=== PATIENT | male | born 1980 | race African-American/Black ===

== ENCOUNTER 2018-05-30 18:14 | Emergency (ER) | payer OTHER, MEDICAID ==
[2018-05-30 18:24] VITALS: BP 142/87
[2018-05-30] MEDS ORDERED: IBUPROFEN 800 MG TABLET PO ONE (19:01)
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
== END 2018-05-30 19:18 | disposition home or self-care (01) ==
LOC: ER 18:14
DX: R51 Headache (principal); M54.5 Low back pain; V49.40XA Driver injured in collision with unspecified motor vehicles in traffic accident, initial encounter
CPT/HCPCS: 99283

== ENCOUNTER 2018-10-24 09:15 | Emergency (ER) | payer MEDICAID, OTHER ==
[2018-10-24] MEDS ORDERED: TETRACAINE HCL 0.5% OPH SOLN 4 ML OS ONE (10:04)
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
[2018-10-24 12:24] VITALS: BP 141/81
[2018-10-24] MEDS ORDERED: ERYTHROMYCIN 0.5% OPH OINT 1 GM UNIT DOSE OS ONE (12:25)
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
== END 2018-10-24 12:25 | disposition home or self-care (01) ==
LOC: ER 09:15
DX: S05.02XA Injury of conjunctiva and corneal abrasion without foreign body, left eye, initial encounter (principal); X58.XXXA Exposure to other specified factors, initial encounter; F17.200 Nicotine dependence, unspecified, uncomplicated; Z87.820 Personal history of traumatic brain injury
CPT/HCPCS: 99283; J3490

== ENCOUNTER 2019-01-08 14:26 | Emergency (ER) | payer OTHER, MEDICAID ==
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
[2019-01-08 15:48] LABS: ABSOLUTE BASOPHILS # (AUTO) 0.1 10^3/uL (0.0-0.2); ABSOLUTE EOSINOPHILS # (AUTO) 0.2 10^3/uL (0.0-0.6); ABSOLUTE LYMPHOCYTES (AUTO) 2.9 10^3/uL (0.5-4.7); ABSOLUTE MONOCYTES (AUTO) 0.5 10^3/uL (0.1-1.4); ABSOLUTE NEUT (AUTO) 4.7 10^3/uL (1.7-8.2); BASOPHILS % (AUTO) 0.8 % (0-2); EOSINOPHILS % (AUTO) 2.5 % (0-6); HEMATOCRIT 39.1 % (37.9-51.0); HEMOGLOBIN 13.5 g/dL (13.5-17.0); LYMPHOCYTES % (AUTO) 34.4 % (13-45); MEAN CORPUSCULAR HEMOGLOBIN 29.1 pg (27.0-33.4); MEAN CORPUSCULAR HGB CONC 34.4 g/dL (32.0-36.0); MEAN CORPUSCULAR VOLUME 85 fl (80-97); MONOCYTES % (AUTO) 5.7 % (3-13); PLATELET COUNT 121 10^3/uL (150-450); RED BLOOD COUNT 4.62 10^6/uL (4.35-5.55); RED CELL DISTRIBUTION WIDTH 15.1 % (11.5-14.0); SEGMENTED NEUTROPHILS % (AUTO) 56.6 % (42-78); TOTAL CELLS COUNTED % (AUTO) 100 %; WHITE BLOOD COUNT 8.3 10^3/uL (4.0-10.5)
[2019-01-08 16:14] LABS: ALANINE AMINOTRANSFERASE 15 U/L (21-72); ALBUMIN 4.1 g/dL (3.5-5.0); ALKALINE PHOSPHATASE 74 U/L (38-126); ANION GAP 6 (5-19); ASPARTATE AMINO TRANSFERASE 23 U/L (17-59); BILIRUBIN,DIRECT 0.2 mg/dL (0.0-0.4); BILIRUBIN,TOTAL 0.2 mg/dL (0.2-1.3); BLOOD UREA NITROGEN 11 mg/dL (7-20); CALCIUM 9.1 mg/dL (8.4-10.2); CARBON DIOXIDE 30 mmol/L (22-30); CHLORIDE 105 mmol/L (98-107); GLUCOSE 78 mg/dL (75-110); LIPASE 321.8 U/L (23-300); POTASSIUM 3.8 mmol/L (3.6-5.0); SODIUM 140.9 mmol/L (137-145); TOTAL PROTEIN 6.8 g/dL (6.3-8.2)
[2019-01-08 16:20] LABS: C-REACTIVE PROTEIN < 5.0 mg/L (<10.0)
--- NOTE | 2019-01-08 17:00 | RADIOLOGY REPORT (SQ) ---
EXAM DESCRIPTION: U/S ABDOMEN LIMITED W/O DOP COMPLETED DATE/TIME: 01/08/2019 4:40 pm REASON FOR STUDY: abd pain, unsure umbilical hernia COMPARISON: None. TECHNIQUE: Dynamic and static grayscale images acquired of the anterior abdominal wall and recorded on PACS. Additional selected color Doppler and spectral images recorded. LIMITATIONS: None. FINDINGS: Patient has pain along the anterior abdominal wall supraumbilical region. Ultrasound of t he midline anterior abdominal wall supraumbilical region in the area of pain demonstrates no discrete anterior abdominal wall hernia. Dynamic scanning with Valsalva was performed. IMPRESSION: No ultrasound evidence of midline ventral hernia TECHNICAL DOCUMENTATION: JOB ID: [id number]- All Rights Reserved Reading location - IP/workstation name: [email or web address]
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
[2019-01-08 21:26] VITALS: BP 122/72
== END 2019-01-08 21:25 | disposition home or self-care (01) ==
LOC: ER 14:26
DX: K42.9 Umbilical hernia without obstruction or gangrene (principal)
CPT/HCPCS: 36415; 76705; 80053; 83690; 85025; 86140; 99284

== ENCOUNTER 2019-01-28 14:01 | Day surgery (SDC) | payer MEDICAID, OTHER ==
[~2019-01-28 14:01] MED LIST: ACETAMINOPHEN 325 MG TABLET PO PRN; CEFAZOLIN SODIUM 2 GM in DEXTROSE 5%-WATER 100 ML IV PRN; GLYCOPYRROLATE 1 MG/5 ML VIAL ONE; IBUPROFEN 800 MG in NORMAL SALINE 250 ML IV PRN; NEOSTIGMINE METHYLSULFATE 10 MG/10 ML VIAL ONE; PREGABALIN 50 MG CAPSULE PO PRN; ROCURONIUM BROMIDE INJ 50 MG/5 ML VIAL IV ONE; SUCCINYLCHOLINE CHLORIDE INJ 200 MG/10 ML VIAL ONE
[2019-01-28] MEDS ORDERED: PREGABALIN 50 MG CAPSULE ONE (14:57)
[2019-01-28] MEDS ORDERED: ACETAMINOPHEN 325 MG TABLET ONE (14:57)
[2019-01-28] MEDS ORDERED: KETOROLAC TROMETHAMINE 60 MG/2 ML SDV ONE (18:29)
[2019-01-28] MEDS ORDERED: FENTANYL CITRATE INJ/PF 100 MCG/2 ML AMPUL ONE (18:29)
[2019-01-28] MEDS ORDERED: DEXAMETHASONE SOD PHOSPHATE INJ 4 MG/1 ML VIAL ONE (18:30)
[2019-01-28] MEDS ORDERED: PROPOFOL INJ 200 MG/20 ML VIAL IV ONE (18:30)
[2019-01-28] MEDS ORDERED: ONDANSETRON HCL INJ/PF 4 MG/2 ML SDV ONE (18:30)
[2019-01-28] MEDS ORDERED: MIDAZOLAM 2 MG/2 ML INJ ONE (18:30)
[2019-01-28] MEDS ORDERED: BUPIVACAINE HCL 0.25 % INJ/PF (2.5 MG/1 ML) 30 ML VIAL ONE (18:58)
[2019-01-28] MEDS ORDERED: MORPHINE SULFATE 10 MG/ML INJ ONE (19:27)
[2019-01-28] MEDS ORDERED: MEPERIDINE HCL/PF INJ 25 MG/1 ML DISP.SYRIN IV PRN (19:33)
[2019-01-28] MEDS ORDERED: DIPHENHYDRAMINE HCL 50 MG/ML VIAL IV PRN (19:33)
[2019-01-28] MEDS ORDERED: PROMETHAZINE HCL INJ 25 MG/1 ML VIAL IV PRN ×2 (19:33)
[2019-01-28] MEDS ORDERED: MORPHINE SULFATE 10 MG/ML INJ IV PRN (19:33)
[2019-01-28] MEDS ORDERED: FENTANYL CITRATE INJ/PF 100 MCG/2 ML AMPUL IV PRN ×3 (19:33)
[2019-01-28] MEDS ORDERED: OXYCODONE-ACETAMINOPHEN 5-325 MG TABLET PO PRN ×2 (19:33)
[2019-01-28] MEDS ORDERED: ONDANSETRON HCL INJ/PF 4 MG/2 ML SDV IV PRN (19:33)
[2019-01-28] MEDS ORDERED: HYDROCODONE/ACETAMINOPHEN 10-325 MG TABLET PO PRN (22:59)
[2019-01-29 00:17] VITALS: BP 132/87
--- NOTE | 2019-02-03 21:00 | Operative Report ---
Nonrecallable Operative Report DATE OF SURGERY: 01/28/19 PREOPERATIVE DIAGNOSIS: Symptomatic umbilical hernia POSTOPERATIVE DIAGNOSIS: Same as above OPERATION: Open umbilical hernia repair with mesh. SURGEON: GENNY SUTHERLAND ANESTHESIA: GA TISSUE REMOVED OR ALTERED: None COMPLICATIONS: None apparent ESTIMATED BLOOD LOSS: Minimal PROCEDURE: Drains/implants: [address] hernia mesh. Procedure in detail: After informed consent was obtained, the patient was brought to the operating room in supine position. The area of the abdomen was prepped and draped in a normal sterile fashion. A curvilinear infraumbilical incision was created with a 15 blade scalpel. Dissection was carried through the subcutaneous tissue using sharp and blunt dissection. The cicatrix was elevated away from the fascia, and the base of the cicatrix was divided with a 15 blade scalpel. This exposed the hernia defect. The preperitoneal fat was cleared away from the hernia defect. An [address] hernia mesh was chosen to adequately cover the defect. The hernia mesh was sutured to the anterior abdominal fascia using 0 Prolene mattress sutures in 4 quadrants. The overlying fascia was then closed using [id number] 0 Prolene sutures. The cicatrix was reattached to the fascia using 3-0 Vicryl suture. Subcutaneous tissue was closed using 3-0 Vicryl suture. The overlying skin was closed using 4-0 Vicryl Rapide suture in subcuticular fashion. Dressing was placed, the procedure was concluded. All sponge, instrument, needle counts were correct x2. Condition: Stable.
--- NOTE | 2019-02-03 21:02 | Discharge Summary ---
Discharge Summary (SDC) - Discharge Final Diagnosis: symptomatic umbilical hernia Date of Surgery: 01/28/19 Discharge Date: 01/28/19 Condition: Fair Forms: Discharge POC-Adult Treatment or Instructions: Diet: As tolerated Activity: No lifting more than 10 pounds for the next six weeks. Referrals: GENNY SUTHERLAND MD [ACTIVE STAFF] - (We will make a follow-up appointment for you and contact you with the date and time. Thank you.) Discharge Diet: As Tolerated Respiratory Treatments at Home: Deep Breathing/Coughing, Incentive Spirometer Discharge Activity: No Lifting Over 10 Pounds Home Care Assistance: None Needed Report the Following to Your Physician Immediately: Shortness of Breath, Nausea, Vomiting, Fever over 101 Degrees, Unusual Bleeding, Redness
== END 2019-01-28 23:00 | disposition home or self-care (01) ==
LOC: OROUT 14:01 → 5 20:51 → OROUT 23:00
PROVIDERS: ATTEND Surgery
DX: K42.9 Umbilical hernia without obstruction or gangrene (principal); F12.90 Cannabis use, unspecified, uncomplicated
CPT/HCPCS: 00750; 49585; C1781; J3490 ×4; J2250; J0690; J1100; J1885; J3010; J2710; J0330; J2405; S0020; J7060; J7050; J2704; J1741; 750; J2270

== ENCOUNTER 2019-02-03 14:12 | Observation (INO) | payer MEDICAID ==
[~2019-02-03 14:12] MED LIST changes: -ACETAMINOPHEN 325 MG TABLET PO PRN; -CEFAZOLIN SODIUM 2 GM in DEXTROSE 5%-WATER 100 ML IV PRN; -IBUPROFEN 800 MG in NORMAL SALINE 250 ML IV PRN; +LIDOCAINE 2% INJ-PF (20 MG/ML) 2 ML AMPUL ONE; +ONDANSETRON HCL INJ/PF 4 MG/2 ML SDV ONE; -PREGABALIN 50 MG CAPSULE PO PRN
[2019-02-03] MEDS ORDERED: FENTANYL CITRATE INJ/PF 100 MCG/2 ML AMPUL IV ONE (16:31)
[2019-02-03] MEDS ORDERED: ONDANSETRON HCL INJ/PF 4 MG/2 ML SDV IV ONE (16:31)
[2019-02-03] MEDS ORDERED: NORMAL SALINE 1000 ML 1,000 ML IV ONE (16:32)
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
[2019-02-03 16:52] LABS: ABSOLUTE BASOPHILS # (AUTO) 0.1 10^3/uL (0.0-0.2); ABSOLUTE EOSINOPHILS # (AUTO) 0.1 10^3/uL (0.0-0.6); ABSOLUTE LYMPHOCYTES (AUTO) 1.9 10^3/uL (0.5-4.7); ABSOLUTE MONOCYTES (AUTO) 0.7 10^3/uL (0.1-1.4); ABSOLUTE NEUT (AUTO) 14.3 10^3/uL (1.7-8.2); BASOPHILS % (AUTO) 0.5 % (0-2); EOSINOPHILS % (AUTO) 0.7 % (0-6); HEMATOCRIT 44.7 % (37.9-51.0); HEMOGLOBIN 14.9 g/dL (13.5-17.0); MEAN CORPUSCULAR HEMOGLOBIN 28.8 pg (27.0-33.4); MEAN CORPUSCULAR HGB CONC 33.4 g/dL (32.0-36.0); MEAN CORPUSCULAR VOLUME 86 fl (80-97); MONOCYTES % (AUTO) 4.2 % (3-13); PLATELET COUNT 162 10^3/uL (150-450); RED BLOOD COUNT 5.18 10^6/uL (4.35-5.55); SEGMENTED NEUTROPHILS % (AUTO) 83.6 % (42-78); TOTAL CELLS COUNTED % (AUTO) 100 %; WHITE BLOOD COUNT 17.1 10^3/uL (4.0-10.5)
[2019-02-03 17:13] LABS: ALANINE AMINOTRANSFERASE < 6 U/L (21-72); ALBUMIN 4.3 g/dL (3.5-5.0); ALKALINE PHOSPHATASE 86 U/L (38-126); ANION GAP 7 (5-19); ASPARTATE AMINO TRANSFERASE 45 U/L (17-59); BILIRUBIN,DIRECT 0.2 mg/dL (0.0-0.4); BILIRUBIN,TOTAL 0.5 mg/dL (0.2-1.3); BLOOD UREA NITROGEN 14 mg/dL (7-20); CALCIUM 9.5 mg/dL (8.4-10.2); CARBON DIOXIDE 27 mmol/L (22-30); CHLORIDE 106 mmol/L (98-107); GLUCOSE 91 mg/dL (75-110); POTASSIUM 4.2 mmol/L (3.6-5.0); TOTAL PROTEIN 7.7 g/dL (6.3-8.2)
--- NOTE | 2019-02-03 18:12 | RADIOLOGY REPORT (SQ) ---
EXAM DESCRIPTION: CT ABD/PELVIS WITH IV ONLY COMPLETED DATE/TIME: 02/03/2019 5:55 pm REASON FOR STUDY: abdominal pain COMPARISON: None. TECHNIQUE: CT scan of the abdomen and pelvis performed using helical scanning technique with dynamic intravenous contrast injection. No oral contrast. Images reviewed with lung, soft tissue, and bone windows. Reconstructed coronal and sagittal MPR images reviewed. Delayed images for evaluation of the urinary system also acquired. All images stored on PACS. All CT scanners at this facility use dose modulation, iterative reconstruction, and/or weight based d osing when appropriate to reduce radiation dose to as low as reasonably achievable (ALARA). [facility]: Dose Right [facility]: CareDose [facility]: Dose Right [facility]: Teradose 4D [facility]: [email or web address] CONTRAST TYPE AND DOSE: contrast/concentration: Isovue 350.00 mg/ml; Total Contrast Delivered: 100.0 ml; Total Saline Delivered: 72.0 ml RENAL FUNCTION: None required. The patient is less than 50 years old. RADIATION DOSE: CT Rad equipment meets quality standard of care and radiation dose reduction techniq ues were employed. CTDIvol: 9.3 - 13.1 mGy. DLP: 1239 mGy-cm.. LIMITATIONS: None. FINDINGS: LOWER CHEST: No significant findings. No nodules or infiltrates. LIVER: Normal size. No masses. No dilated ducts. SPLEEN: Normal size. No focal lesions. PANCREAS: No masses. No significant calcifications. No adjacent inflammation or peripancreatic fluid collections. Pancreatic duct not dilated. GALLBLADDER: No identified stones by CT criteria. No inflammatory changes to suggest cholecystitis. ADRENAL GLANDS: No significant masses or asymmetry. RIGHT KIDNEY AND URETER: No solid masses. No significant calcification. No hydronephrosis or hydroure ter. LEFT KIDNEY AND URETER: No solid masses. No significant calcification. No hydronephrosis or hydrouret er. AORTA AND VESSELS: No aneurysm. No dissection. Renal arteries, SMA, celiac without stenosis. RETROPERITONEUM: No retroperitoneal adenopathy, hemorrhage or masses. BOWEL AND PERITONEAL CAVITY: Fluid-filled loops of small bowel in the epigastrium. At the level of t he umbilicus, there is a bilobed fluid collection, partially intraabdominal and partially extending a bdominal wall into the subcutaneous tissues. Maximal AP dimension of this collection is almost 7 cm. The lesion appears to be associated with mass effect on adjacent small bowel loops, probably contri buting to partial obstruction at this level. Some of the adjacent loops are mildly thick walled as w ell. No free air. Mild ascites. APPENDIX: Normal. PELVIS: Small amount of free fluid in the pelvis. Otherwise normal. ABDOMINAL WALL: No masses. No hernias. BONES: No significant or acute findings. OTHER: No other significant finding. IMPRESSION: 1. Umbilical hernia containing fluid status post recent hernia repair. Fluid measures over 6 cm in m aximal dimension. Intra-abdominal portion appears to exert mass effect on the adjacent small bowel l oops causing relative partial obstruction. No clear bowel extending out into the hernia. Mild ascit es is also noted. TECHNICAL DOCUMENTATION: JOB ID: [id number] Quality ID # [id number]: Final reports with documentation of one or more dose reduction techniques (e.g., Au tomated exposure control, adjustment of the mA and/or kV according to patient size, use of iterative reconstruction technique) 2010 [employer]- All Rights Reserved Reading location - IP/workstation name: [email or web address]
[2019-02-03] MEDS ORDERED: HYDROMORPHONE HCL INJ/PF 2 MG/ML AMPULE IV ONE (18:56)
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
[2019-02-03] MEDS ORDERED: FENTANYL CITRATE INJ/PF 250 MCG/5 ML AMPULE ONE (20:26)
[2019-02-03] MEDS ORDERED: LIDOCAINE 2% INJ-PF (100 MG/5 ML) SYRINGE ONE (20:26)
[2019-02-03] MEDS ORDERED: MIDAZOLAM 2 MG/2 ML INJ ONE ×2 (20:27→23:32)
[2019-02-03] MEDS ORDERED: FENTANYL CITRATE INJ/PF 100 MCG/2 ML AMPUL ONE (20:27)
[2019-02-03] MEDS ORDERED: HYDROMORPHONE HCL INJ/PF 2 MG/ML AMPULE ONE (20:27)
[2019-02-03] MEDS ORDERED: PROPOFOL INJ 200 MG/20 ML VIAL IV ONE (20:28)
--- NOTE | 2019-02-03 20:28 | PDOC H&P ---
History of Present Illness Admission Date/PCP: 02/03/19 19:46 Patient complains of: Abdominal pain, nausea, vomiting after umbilical hernia repair. History of Present Illness: SHELIA CORDOBA JR is a 38 year old male approximately 6 days status post umbilical hernia repair. The patient had a coughing episode last night at home and felt a pop in his abdomen. His abdomen then became swollen, tender, and he developed distention, nausea, and vomiting. The patient denies fevers or chills. His pain is situated around his umbilicus. It radiates laterally on adriano th sides. Nothing makes his pain better. Movement, breathing, and palpation make it worse. Patient denies chest pain, shortness of breath, fevers, chills, dizziness, orthostasis, headache, blurry vision. Patient had a CT scan showing a fluid collection, likely hematoma, between the mesh and the abdominal wall, with nearby small bowel inflamed and evidence of an obstruction. 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 Denies: Seizures Endocrine Medical History: Reports: None Renal/ Medical History: Reports: None Malignancy Medical History: Reports: None GI Medical History: Reports: None Musculoskeltal Medical History: Denies: Arthritis Skin Medical History: Reports: None Psychiatric Medical History: Reports: Depression Traumatic Medical History: Reports: Traumatic Brain Injury Hematology: Denies: Anemia Infectious Medical History: Reports: None Past Surgical History Past Surgical History: Reports: Orthopedic Surgery - knee, Other - recent open umbilical hernia repair Social History Lives with: Spouse/Significant other Smoking Status: Current Some Day Smoker Family History Family History: Reviewed & Not Pertinent Parental Family History Reviewed: Yes Children Family History Reviewed: Yes Sibling(s) Family History Reviewed.: Yes Medication/Allergy Home Medications: No Home Medications 1 03/11/13 Allergies/Adverse Reactions: No Known Allergies Allergy (Verified 02/03/19 14:19) Review of Systems Constitutional: PRESENT: anorexia. ABSENT: chills, fatigue, fever(s), weakness Eyes: ABSENT: visual disturbances Ears: ABSENT: hearing changes Nose, Mouth, and Throat: ABSENT: sore throat Cardiovascular: ABSENT: chest pain Respiratory: PRESENT: cough Gastrointestinal: PRESENT: abdominal pain, bloating, nausea, vomiting. ABSENT: hematemesis, hematochezia, melena Genitourinary: ABSENT: dysuria Musculoskeletal: ABSENT: back pain Integumentary: ABSENT: pruritus, rash Neurological: ABSENT: confusion, convulsions, dizziness Psychiatric: ABSENT: anxiety, depression Endocrine: ABSENT: cold intolerance, heat intolerance Hematologic/Lymphatic: ABSENT: easy bleeding, easy bruising Physical Exam Vital Signs: Temp Pulse Resp BP Pulse Ox 97.5 F 73 16 144/82 H 94 02/03/19 14:32 02/03/19 14:32 02/03/19 19:00 02/03/19 19:01 02/03/19 19:01 Intake & Output 02/02/19 02/03/19 02/04/19 06:59 06:59 06:59 Intake Total 1000 Balance 1000 Weight 101 kg General appearance: PRESENT: mild distress Head exam: PRESENT: atraumatic, normocephalic Eye exam: PRESENT: EOMI, PERRLA. ABSENT: scleral icterus Mouth exam: PRESENT: moist, neck supple Teeth exam: ABSENT: poor dentation Neck exam: ABSENT: meningismus, tenderness, thyromegaly, tracheal deviation Respiratory exam: PRESENT: unlabored. ABSENT: chest wall tenderness, tachypnea, wheezes Cardiovascular exam: PRESENT: RRR Pulses: PRESENT: normal radial pulses Vascular exam: PRESENT: normal capillary refill, pallor GI/Abdominal exam: PRESENT: distended, firm, tenderness Rectal exam: PRESENT: deferred Extremities exam: ABSENT: clubbing Musculoskeletal exam: ABSENT: deformity Neurological exam: PRESENT: alert, awake, oriented to person, oriented to place, oriented to time, oriented to situation, CN II-XII grossly intact Psychiatric exam: ABSENT: agitated, anxious, depressed Focused psych exam: ABSENT: delusional Skin exam: ABSENT: cyanosis, erythema, jaundice Results Laboratory Results: 02/03/19 16:40 02/03/19 16:40 02/03/19 02/03/19 16:40 16:40 WBC 17.1 H RBC 5.18 Hgb 14.9 Hct 44.7 MCV 86 MCH 28.8 MCHC 33.4 RDW 15.0 H Plt Count 162 Seg Neutrophils % 83.6 H Lymphocytes % 11.0 L Monocytes % 4.2 Eosinophils % 0.7 Basophils % 0.5 Absolute Neutrophils 14.3 H Absolute Lymphocytes 1.9 Absolute Monocytes 0.7 Absolute Eosinophils 0.1 Absolute Basophils 0.1 Sodium 140.2 Potassium 4.2 Chloride 106 Carbon Dioxide 27 Anion Gap 7 BUN 14 Creatinine 0.99 Est GFR ( Amer) > 60 Est GFR (Non-Af Amer) > 60 Glucose 91 Calcium 9.5 Total Bilirubin 0.5 AST 45 ALT < 6 L Alkaline Phosphatase 86 Total Protein 7.7 Albumin 4.3 Impressions: Abdomen/Pelvis CT 02/03/19 16:30 IMPRESSION: 1. Umbilical hernia containing fluid status post recent hernia repair. Fluid measures over 6 cm in maximal dimension. Intra-abdominal portion appears to exert mass effect on the adjacent small bowel loops causing relative partial obstruction. No clear bowel extending out into the hernia. Mild ascites is also noted. Assessment & Plan - Diagnosis (1) Postoperative intestinal obstruction Qualifiers: Intestinal obstruction extent: unspecified extent Qualified Code(s): K91.30 - Postprocedural intestinal obstruction, unspecified as to partial versus complete Is this a current diagnosis for this admission?: Yes - Plan Summary Plan Summary: This is a 38-year-old male 6 days postop from an open umbilical hernia repair. The patient reports coughing at home and feeling a pop in his abdomen. The patient then began having abdominal distention, nausea, vomiting, and diffuse abdominal pain. Patient presented to the emergency department where CT scan was performed. I reviewed the CT scan images and reports. Patient has a fluid collection between the mesh and the abdominal wall, consistent with a hematoma. The patient has a thickened loop of small bowel adjacent to the displaced mesh. There is evidence of obstruction distal to this area. I believe the patient has potentially dislodged his mesh, causing a bowel obstruction after surgery. I have recommended laparoscopic exploration with possible removal of the mesh, possible redo hernia repair. The patient has agreed to this. Risks/benefits discussed, informed consent obtained, and all questions answered.
[2019-02-03] MEDS ORDERED: BUPIVACAINE HCL 0.25 % INJ/PF (2.5 MG/1 ML) 30 ML VIAL ONE (20:36)
[2019-02-03] MEDS ORDERED: CEFAZOLIN INJ 1 GM VIAL ONE (20:51)
[2019-02-03] MEDS ORDERED: MEPERIDINE HCL/PF INJ 25 MG/1 ML DISP.SYRIN IV PRN (21:55)
[2019-02-03] MEDS ORDERED: DIPHENHYDRAMINE HCL 50 MG/ML VIAL IV PRN (21:55)
[2019-02-03] MEDS ORDERED: FENTANYL CITRATE INJ/PF 100 MCG/2 ML AMPUL IV PRN ×3 (21:55)
[2019-02-03] MEDS ORDERED: PROMETHAZINE HCL INJ 25 MG/1 ML VIAL IV PRN ×2 (21:55)
[2019-02-03] MEDS ORDERED: HYDROMORPHONE HCL INJ/PF 2 MG/ML AMPULE IV PRN (21:56)
[2019-02-03] MEDS ORDERED: KETAMINE HCL INJ 500 MG/10 ML VIAL ONE (23:32)
[2019-02-03] MEDS ORDERED: ONDANSETRON HCL INJ/PF 4 MG/2 ML SDV IV PRN (23:46)
[2019-02-03] MEDS ORDERED: DEXTROSE 5%-LACTATED RINGERS 1,000 ML IV PRN (23:46)
--- NOTE | 2019-02-04 00:03 | Operative Report ---
Nonrecallable Operative Report DATE OF SURGERY: 02/03/19 PREOPERATIVE DIAGNOSIS: 1. Small bowel obstruction. 2. Recurrent umbilical hernia POSTOPERATIVE DIAGNOSIS: 1. The same. 2. The same. 3. No evidence of bowel necrosis or perforation. 4. No evidence of ongoing infection. OPERATION: 1. Exploratory laparoscopy. 2. Extensive laparoscopic lysis of adhesions. 3. Removal of old, dislodged ventralex ST hernia mesh. 4. Laparoscopic repair of recurrent umbilical hernia with mesh. SURGEON: GENNY SUTHERLAND ANESTHESIA: GA TISSUE REMOVED OR ALTERED: [address] hernia mesh COMPLICATIONS: None apparent ESTIMATED BLOOD LOSS: Minimal PROCEDURE: Drains/implants: [address] hernia mesh. Procedure in detail: After informed consent was obtained, the patient was brought to the operating room and laid in the supine position. The area of the abdomen was prepped and draped in a normal sterile fashion. An incision was created in the left upper quadrant. The 5 mm trocar and 5 mm camera were inserted into the abdomen under direct laparoscopic visualization, using the Optiview technique. Once the abdominal cavity was accessed, the gas insufflation was attached, and pneumoperitoneum was achieved. Another left lateral 5 mm trocar was placed. Another 5 mm trocar was placed in the supr apubic midline. The left upper quadrant 5 mm trocar was removed and replaced with a 12 mm trocar. Another 5 mm trocar was placed in the right upper quadrant under direct laparoscopic visualization, to facilitate exploration. Upon entry into the abdominal cavity there is a large amount of omentum and small bowel stuck to the anterior abdominal wall at the umbilicus. Very carefully and gently, the small bowel and omentum were peeled away from the anterior abdominal wall. The previously placed hernia mesh was found to be dislodged. Multiple sutures were broken. The mesh was further freed from the anterior abdominal wall using sharp dissection. It was removed through the 12 mm trocar and passed off the field. Attention was then turned to running of the bowel and extensive lysis of adhesions. The small bowel was densely adherent to itself as well as to the omentum. With great care the lysis of adhesions was undertaken. The small bowel to small bowel attachments were lysed using blunt dissection and sharp dissection. The omentum was freed. The small bowel was run from the ligament of Treitz to the ileocecal valve. There were no signs of bowel necrosis or perforation. Once this was completed, the abdomen was copiously irrigated and suctioned until the effluent was clear. Next, attention was turned to repair of the recurrent umbilical hernia defect. 0 Ethibond suture was used to close the fascia in percutaneous fashion with the aid of the Kieran-Rhiannon device. Once this was completed, an [address] hernia mesh was placed into the abdominal cavity. It was apposed to the anterior abdominal wall using the EPS. The mesh was then sutured to the abdominal wall with trans-fascial 0 Prolene sutures in 4 quadrants. Next, the EPS was removed, and tacks were used in several circumferential layers. Once the mesh was found to lie in good place, the 12 mm trocar was removed. The fascia was closed using 0 Vicryl suture in [id number] fashion under direct vision. The 5 mm trochars were removed, and pneumoperitoneum was relieved. The skin was then closed using skin robert. Dressings were placed, and the procedure was concluded. All sponge, instrument, and needle counts were correct x2. Condition: Stable.
[2019-02-04] MEDS: MORPHINE SULFATE 10 MG/ML INJ IV PRN ×2 (01:17→05:21)
[2019-02-04] MEDS: OXYCODONE-ACETAMINOPHEN 5-325 MG TABLET PO PRN ×2 (02:17→19:51)
[2019-02-04] MEDS: KETOROLAC TROMETHAMINE INJ/PF 30 MG/1 ML SDV IV SCH ×3 (05:19→21:06)
[2019-02-04 05:47] LABS: HEMOGLOBIN 13.6 g/dL (13.5-17.0); MEAN CORPUSCULAR HEMOGLOBIN 28.9 pg (27.0-33.4); MEAN CORPUSCULAR HGB CONC 33.9 g/dL (32.0-36.0); MEAN CORPUSCULAR VOLUME 85 fl (80-97); PLATELET COUNT 124 10^3/uL (150-450); RED CELL DISTRIBUTION WIDTH 14.8 % (11.5-14.0); WHITE BLOOD COUNT 21.7 10^3/uL (4.0-10.5)
[2019-02-04 06:14] LABS: ABSOLUTE MONOCYTES # (MANUAL) 0.7 10^3/uL (0.1-1.4); BAND NEUTROPHILS % (MANUAL) 1 % (3-5); BASOPHILS % (MANUAL) 0 % (0-2); EOSINOPHILS % (MANUAL) 0 % (0-6); LYMPHOCYTES % (MANUAL) 9 % (13-45); MONOCYTES % (MANUAL) 3 % (3-13); SEGMENTED NEUTROPHILS % (MAN) 87 % (42-78); TOTAL CELLS COUNTED 100
[2019-02-04 06:15] LABS: PLATELET COMMENT DECREASED; TOXIC GRANULATION SLIGHT; TOXIC VACUOLATION PRESENT
[2019-02-04 06:16] LABS: BURR CELLS SLIGHT; HYPOCHROMASIA SLIGHT
[2019-02-04 06:18] LABS: ANION GAP 10 (5-19); BLOOD UREA NITROGEN 12 mg/dL (7-20); CALCIUM 8.9 mg/dL (8.4-10.2); CARBON DIOXIDE 22 mmol/L (22-30); CHLORIDE 108 mmol/L (98-107); GLUCOSE 88 mg/dL (75-110); POTASSIUM 3.9 mmol/L (3.6-5.0)
--- NOTE | 2019-02-04 07:59 | PDOC PROGRESS REPORT ---
Subjective Progress Note for:: 02/04/19 Reason For Visit: RECURRENT UMBILICAL HERNIA,SMALL BOWEL OBSTRUCTION Physical Exam Vital Signs: Temp Pulse Resp BP Pulse Ox 97.6 F 77 17 145/82 H 93 02/04/19 01:57 02/04/19 01:57 02/04/19 01:37 02/04/19 01:57 02/04/19 04:00 Pulse Oximeter Continuous Start: 02/04/19 00:44 Freq: RTQ4 Status: Active Protocol: Document 02/04/19 04:00 CMI (Rec: 02/04/19 04:33 CMI [id number]) Pulse Oximetry Assessment Oxygen Saturation (92-100) 93 Oxygen Flow Rate (L/min) 2 Oxygen Delivery Method Nasal Cannula Fraction of Inspired Oxygen (FIO2) 28 Equipment Usage Equipment in Use Continuous SpO2 Machine # 13 Intake & Output 02/03/19 02/04/19 02/05/19 06:59 06:59 06:59 Intake Total 3700 Output Total 1210 Balance 2490 Weight 104.2 kg General appearance: PRESENT: no acute distress Head exam: PRESENT: normocephalic Eye exam: PRESENT: EOMI Mouth exam: PRESENT: moist Neck exam: PRESENT: full ROM Respiratory exam: PRESENT: clear to auscultation margarette Cardiovascular exam: PRESENT: RRR Pulses: PRESENT: normal radial pulses, normal femoral pulses GI/Abdominal exam: PRESENT: soft, other - woiund clean dry Rectal exam: PRESENT: deferred Extremities exam: PRESENT: full ROM Musculoskeletal exam: PRESENT: full ROM Neurological exam: PRESENT: alert, awake, oriented to person Psychiatric exam: PRESENT: appropriate affect Skin exam: PRESENT: dry Results Laboratory Results: 02/04/19 05:08 02/04/19 05:08 02/03/19 02/03/19 02/04/19 16:40 16:40 05:08 WBC 17.1 H 21.7 H RBC 5.18 4.70 Hgb 14.9 13.6 Hct 44.7 40.0 MCV 86 85 MCH 28.8 28.9 MCHC 33.4 33.9 RDW 15.0 H 14.8 H Plt Count 162 124 L Seg Neutrophils % 83.6 H Not Reportable Lymphocytes % 11.0 L Not Reportable Monocytes % 4.2 Not Reportable Eosinophils % 0.7 Not Reportable Basophils % 0.5 Not Reportable Absolute Neutrophils 14.3 H Not Reportable Absolute Lymphocytes 1.9 Not Reportable Absolute Monocytes 0.7 Not Reportable Absolute Eosinophils 0.1 Not Reportable Absolute Basophils 0.1 Not Reportable Sodium 140.2 Potassium 4.2 Chloride 106 Carbon Dioxide 27 Anion Gap 7 BUN 14 Creatinine 0.99 Est GFR ( Amer) > 60 Est GFR (Non-Af Amer) > 60 Glucose 91 Calcium 9.5 Total Bilirubin 0.5 AST 45 ALT < 6 L Alkaline Phosphatase 86 Total Protein 7.7 Albumin 4.3 02/04/19 05:08 WBC RBC Hgb Hct MCV MCH MCHC RDW Plt Count Seg Neutrophils % Lymphocytes % Monocytes % Eosinophils % Basophils % Absolute Neutrophils Absolute Lymphocytes Absolute Monocytes Absolute Eosinophils Absolute Basophils Sodium 140.0 Potassium 3.9 Chloride 108 H Carbon Dioxide 22 Anion Gap 10 BUN 12 Creatinine 0.87 Est GFR ( Amer) > 60 Est GFR (Non-Af Amer) > 60 Glucose 88 Calcium 8.9 Total Bilirubin AST ALT Alkaline Phosphatase Total Protein Albumin Impressions: Abdomen/Pelvis CT 02/03/19 16:30 IMPRESSION: 1. Umbilical hernia containing fluid status post recent hernia repair. Fluid measures over 6 cm in maximal dimension. Intra-abdominal portion appears to exert mass effect on the adjacent small bowel loops causing relative partial obstruction. No clear bowel extending out into the hernia. Mild ascites is also noted. Assessment & Plan - Plan Summary Plan Summary: s/p repair of recurrent umbilical hernia last last pm this am feels better abd soft, wound clean dry wbc 21k plan trend wbc clear liquids ambulate.
[2019-02-04] MEDS: FAMOTIDINE INJ/PF 20 MG/2 ML SDV IV SCH ×2 (13:03→21:06)
[2019-02-04] MEDS ORDERED: ONDANSETRON HCL INJ/PF 4 MG/2 ML SDV IV PRN (15:30)
[2019-02-04] MEDS ORDERED: MORPHINE SULFATE 10 MG/ML INJ IV PRN (15:30)
[2019-02-05] MEDS: OXYCODONE-ACETAMINOPHEN 5-325 MG TABLET PO PRN ×2 (01:15→19:09)
[2019-02-05 01:22] LABS: ABSOLUTE BASOPHILS # (AUTO) 0.1 10^3/uL (0.0-0.2); ABSOLUTE EOSINOPHILS # (AUTO) 0.2 10^3/uL (0.0-0.6); ABSOLUTE LYMPHOCYTES (AUTO) 2.3 10^3/uL (0.5-4.7); ABSOLUTE NEUT (AUTO) 8.7 10^3/uL (1.7-8.2); BASOPHILS % (AUTO) 0.4 % (0-2); EOSINOPHILS % (AUTO) 1.4 % (0-6); HEMATOCRIT 36.1 % (37.9-51.0); HEMOGLOBIN 12.1 g/dL (13.5-17.0); LYMPHOCYTES % (AUTO) 18.8 % (13-45); MEAN CORPUSCULAR HEMOGLOBIN 28.4 pg (27.0-33.4); MEAN CORPUSCULAR HGB CONC 33.7 g/dL (32.0-36.0); MEAN CORPUSCULAR VOLUME 84 fl (80-97); MONOCYTES % (AUTO) 8.2 % (3-13); PLATELET COUNT 139 10^3/uL (150-450); RED BLOOD COUNT 4.28 10^6/uL (4.35-5.55); RED CELL DISTRIBUTION WIDTH 14.6 % (11.5-14.0); SEGMENTED NEUTROPHILS % (AUTO) 71.2 % (42-78); TOTAL CELLS COUNTED % (AUTO) 100 %; WHITE BLOOD COUNT 12.2 10^3/uL (4.0-10.5)
[2019-02-05] MEDS: KETOROLAC TROMETHAMINE INJ/PF 30 MG/1 ML SDV IV SCH ×2 (05:20→17:45)
--- NOTE | 2019-02-05 08:06 | PDOC PROGRESS REPORT ---
Subjective Progress Note for:: 02/05/19 Subjective:: feels ok no flatus Reason For Visit: RECURRENT UMBILICAL HERNIA,SMALL BOWEL OBSTRUCTION Physical Exam Vital Signs: Temp Pulse Resp BP Pulse Ox 98.7 F 71 15 130/74 H 99 02/04/19 23:12 02/04/19 23:12 02/04/19 23:12 02/04/19 23:12 02/04/19 23:12 Pulse Oximeter Continuous Start: 02/04/19 00:44 Freq: RTQ4 Status: Complete Protocol: Document 02/04/19 12:50 NSC (Rec: 02/04/19 12:50 NSC [id number]) Pulse Oximetry Assessment Equipment Usage Equipment Discontinued Continuous SpO2 Machine # [id number] Additional RT Notes Other equipment discontinued per 12 hour order Intake & Output 02/04/19 02/05/19 02/06/19 06:59 06:59 06:59 Intake Total 3700 320 Output Total 1210 200 Balance 2490 120 Weight 104.2 kg 103.7 kg General appearance: PRESENT: no acute distress Head exam: PRESENT: normocephalic Eye exam: PRESENT: EOMI Mouth exam: PRESENT: dry mucosa Neck exam: PRESENT: full ROM Respiratory exam: PRESENT: clear to auscultation margarette Cardiovascular exam: PRESENT: RRR Pulses: PRESENT: normal radial pulses, normal femoral pulses Vascular exam: PRESENT: normal capillary refill GI/Abdominal exam: PRESENT: soft Rectal exam: PRESENT: deferred Extremities exam: PRESENT: full ROM Musculoskeletal exam: PRESENT: full ROM Neurological exam: PRESENT: alert, awake, oriented to person, oriented to place Psychiatric exam: PRESENT: appropriate affect Skin exam: PRESENT: dry Results Laboratory Results: 02/05/19 01:11 02/04/19 05:08 02/05/19 01:11 WBC 12.2 H RBC 4.28 L Hgb 12.1 L Hct 36.1 L MCV 84 MCH 28.4 MCHC 33.7 RDW 14.6 H Plt Count 139 L Seg Neutrophils % 71.2 Lymphocytes % 18.8 Monocytes % 8.2 Eosinophils % 1.4 Basophils % 0.4 Absolute Neutrophils 8.7 H Absolute Lymphocytes 2.3 Absolute Monocytes 1.0 Absolute Eosinophils 0.2 Absolute Basophils 0.1 Impressions: Abdomen/Pelvis CT 02/03/19 16:30 IMPRESSION: 1. Umbilical hernia containing fluid status post recent hernia repair. Fluid measures over 6 cm in maximal dimension. Intra-abdominal portion appears to exert mass effect on the adjacent small bowel loops causing relative partial obstruction. No clear bowel extending out into the hernia. Mild ascites is also noted. Assessment & Plan - Plan Summary Plan Summary: doing ok awaiting return of bowel function cont clears
[2019-02-05] MEDS: FAMOTIDINE INJ/PF 20 MG/2 ML SDV IV SCH (17:45)
[2019-02-05] MEDS ORDERED: KETOROLAC TROMETHAMINE INJ/PF 30 MG/1 ML SDV IM PRN (20:44)
[2019-02-05] MEDS ORDERED: BISACODYL 10 MG SUPP.RECT PR ONE (22:00)
[2019-02-05] MEDS: FAMOTIDINE 20 MG TABLET PO SCH (22:31)
[2019-02-06] MEDS: OXYCODONE-ACETAMINOPHEN 5-325 MG TABLET PO PRN (08:50)
[2019-02-06] MEDS ORDERED: BISACODYL 10 MG SUPP.RECT PR ONE (09:30)
[2019-02-06] MEDS: FAMOTIDINE 20 MG TABLET PO SCH (09:49)
--- NOTE | 2019-02-06 12:04 | PDOC DISCHARGE SUMMARY ---
General - Admit/Disc Date/PCP Admission Date/Primary Care Provider: 02/05/19 10:48 Discharge Date: 02/06/19 - Additional Information Resuscitation Status: Full Code Discharge Diet: As Tolerated Discharge Activity: Activity As Tolerated, No Lifting Over 10 Pounds Home Medications: Hydrocodone/Acetaminophen [[place] 5-325 Tablet] 1 each PO Q6HP PRN MDD FILLED 01/28 FOR 3 DAY SUPPLY 02/04/19 Ibuprofen [Motrin 800 mg Tablet] 800 mg PO Q8HP PRN MDD FILLED 01/28 FOR 14 DAY SUPPLY 02/04/19 History of Present Illness Patient complains of: abdominal pain History of Present Illness: SHELIA CORDOBA JR is a 38 year old male admitted with abd pain, incarcerated ventral hernia and sbo Hospital Course Hospital Course: taken to or on day of admission for repair of incarcerated ventral hernia and release of sbo pawan procedure well diet advanced over 48hrs and now pawan soft foods with return of nl bowel function pt ready for dc home today. Physical Exam Vital Signs: Temp Pulse Resp BP Pulse Ox 98.4 F 56 L 16 139/69 H 97 02/06/19 07:13 02/06/19 07:13 02/06/19 07:13 02/06/19 07:13 02/06/19 07:13 Pulse Oximeter Continuous Start: 02/04/19 00:44 Freq: RTQ4 Status: Complete Protocol: Document 02/04/19 12:50 [facility] [place] (Rec: 02/04/19 12:50 [facility] [place] [id number]) Pulse Oximetry Assessment Equipment Usage Equipment Discontinued Continuous SpO2 Machine # N 13 Additional RT Notes Other equipment discontinued per 12 hour order Intake & Output 02/05/19 02/06/19 02/07/19 06:59 06:59 06:59 Intake Total 320 9640 Output Total 200 Balance 120 9640 Weight 103.7 kg 104.1 kg General appearance: PRESENT: no acute distress Eye exam: PRESENT: EOMI Ear exam: PRESENT: normal external ear exam Mouth exam: PRESENT: moist Neck exam: PRESENT: full ROM Respiratory exam: PRESENT: clear to auscultation margarette Cardiovascular exam: PRESENT: RRR Pulses: PRESENT: normal femoral pulses, +2 pedal pulses bilateral GI/Abdominal exam: PRESENT: soft - wound clean dry , robert in place Rectal exam: PRESENT: deferred Extremities exam: PRESENT: full ROM Musculoskeletal exam: PRESENT: full ROM Neurological exam: PRESENT: alert, awake, oriented to person, oriented to place Psychiatric exam: PRESENT: appropriate affect Skin exam: PRESENT: dry Results Laboratory Results: 02/05/19 01:11 02/04/19 05:08 Impressions: Abdomen/Pelvis CT 02/03/19 16:30 IMPRESSION: 1. Umbilical hernia containing fluid status post recent hernia repair. Fluid measures over 6 cm in maximal dimension. Intra-abdominal portion appears to exert mass effect on the adjacent small bowel loops causing relative partial obs truction. No clear bowel extending out into the hernia. Mild ascites is also noted. Qualifiers - * PATIENT BEING DISCHARGED WITH ANY OF THE FOLLOWING DIAGNOSIS: No VTE patient discharged on overlapping Therapy?: No Reason(s) for not prescribing Overlap Therapy:: Not indicated Reason(s) for not prescribing Anti-thrombolytic therapy:: Not indicated Reason(s) for not prescribing Anti-coagulation therapy:: Not indicated Reason(s) for not prescribing Statins therapy:: Not indicated Reason(s) for not prescribing Aspirin therapy:: Not indicated Reason(s) for not prescribing Statin therapy:: Not indicated Reason(s) for not prescribing ACEI/ARBS:: Not indicated Acute Heart Failure - Is this a Heart Failure Patient?: No Plan Time Spent: Less than 30 Minutes - pr home today will f/u with Dr Pimentel in 1 wk.
[2019-02-06 12:08] VITALS: BP 132/74
== END 2019-02-06 12:25 | disposition home or self-care (01) ==
LOC: ER 14:12 → EH 19:46 → 4N 02-04 01:05 → OBSVTOIN 02-05 10:48 → INTOOBSV 02-05 10:48
PROVIDERS: ADMIT Surgery; ATTEND Surgery
PROC: 0DNU4ZZ Release Omentum, Percutaneous Endoscopic Approach (ICD-10-PCS; 2019-02-03)
PROC: 0WUF4JZ Supplement Abdominal Wall with Synthetic Substitute, Percutaneous Endoscopic Approach (ICD-10-PCS; 2019-02-03)
PROC: 0WPF4JZ Removal of Synthetic Substitute from Abdominal Wall, Percutaneous Endoscopic Approach (ICD-10-PCS; 2019-02-03)
PROC: 0DN84ZZ Release Small Intestine, Percutaneous Endoscopic Approach (ICD-10-PCS; principal; 2019-02-03 21:00)
DX: K91.31 Postprocedural partial intestinal obstruction (principal); K42.0 Umbilical hernia with obstruction, without gangrene; T85.628A Displacement of other specified internal prosthetic devices, implants and grafts, initial encounter; T81.32XA Disruption of internal operation (surgical) wound, not elsewhere classified, initial encounter; Y83.8 Other surgical procedures as the cause of abnormal reaction of the patient, or of later complication, without mention of misadventure at the time of the procedure; K66.0 Peritoneal adhesions (postprocedural) (postinfection); D72.829 Elevated white blood cell count, unspecified; F17.200 Nicotine dependence, unspecified, uncomplicated; Z87.820 Personal history of traumatic brain injury
CPT/HCPCS: 99284; 96361; 96374; 96375; 36415 ×3; 85025 ×3; 80048; 80053; 74177; 94762; 00790; 44180; 49652; 22999; 49329; G0378 ×3; C1781; J2250; J3490 ×6; J0690; J3010 ×2; J2001; J1885 ×2; J2270; J2710; J1170; J0330; J2405; S0020; J7121; J7030; J2704; S0028; 790

== ENCOUNTER → 2020-01-31 | Outpatient (CLI) | payer OTHER ==
--- NOTE | 2020-01-31 11:49 | ER [facility] ASSESSMENT REPORT ---
Intake - In the Last 14 days Have you traveled outside [place]?: No Have you been in close contact with someone CONFIRMED: No Worked in Healthcare?: No - Symptoms Subjective Fever([place] feverish): Yes Chills: Yes Muscule Aches: Yes Runny Nose: Yes Sore Throat: Yes Cough (New or worsening chronic cough): No Shortness of breath: Yes Nausea or Vomiting: Yes Headache: Yes Abdominal Pain: Yes Diarrhea(3 or more loose stools in last 24 hours): Yes - Do you have any of the following Chronic lung disease: Asthma or emphysema or COPD: No Cystic Fibrosis: No Diabetes: No High Blood Pressure: No Cardiovascular Disease: No Chronic Kidney Disease: No Chronic Liver Disease: No Chronic blood disorder like Sickle Cell Disease: No Weak immune system due to disease or medication: No Neurologic condition that limits movement: No Developmental delay - Moderate to Severe: No Recent (within past 2 weeks) or current : No Morbid Obesity (>100 pounds over ideal weight): No - Objective Temperature: 98.5 F Pulse Rate: 88 Respiratory Rate: 16 Blood Pressure: 118/55 O2 Sat by Pulse Oximetry: 97 Objective: Given above, testing performed: If Testing Performed: Test Specimen Type Sent to General - General Information source: Patient Notes: Patient presents to the [facility] for screening for the coronavirus. Patient states that he just wants to be tested as he has been around a lot of people although has not had any positive known exposure to someone with the coronavirus. Patient states that he has had fever chills body aches, runny nose, sore throat, shortness of breath, headache and abdominal tenderness. Patient reports an underlying history of IBS, PTSD and anxiety. 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 Denies: Hx Cerebrovascular Accident, Hx Seizures Renal/ Medical History: Denies: Hx Peritoneal Dialysis GI Medical History: Reports: Hx Irritable Bowel Musculoskeletal Medical History: Denies Hx Arthritis, Reports Hx Musculoskeletal Trauma Psychiatric Medical History: Reports: Hx Anxiety, Hx Depression Traumatic Medical History: Reports: Hx Fractures, Hx Traumatic Brain Injury Past Surgical History: Reports: Hx Orthopedic Surgery - knee, Other - recent open umbilical hernia repair Physical Exam - Notes Notes: The patient was evaluated during the global Covid 19 pandemic, and that diagnosis was suspected/considered upon their initial presentation. Their evaluation, treatment and testing was consistent with current guidelines for patients who present with complaints or symptoms that may be related to Covid 19. Full physical exam could not be performed due to covid 19 isolation protocols. Constitutional: Nontoxic appearance, no acute distress Eyes: Nonicteric, extraocular movements intact, sclera clear Cardiovascular: Heart rate and rhythm regular, no JVD Respiratory: Breath sounds clear bilaterally, nonlabored breathing, no use of accessory muscles, no tachypnea Gastrointestinal: Abdomen not distended Muculoskeletal: Moves all extremities well Skin: Normal color Neuro: Awake alert oriented, normal speech Psych: Normal mood and affect Diagnostic Results Laboratory Results: Patient presents with upper respiratory symptoms worrisome for possible Covid 19. Patient does not have emergency worrying symptoms such as difficulty breathing, shortness of breath, chest pain, pressure, confusion or cyanosis. Alfred morocho appears suitable for discharge as they are not of an advanced age, do not have any chronic medical conditions such as diabetes, CAD, immune deficiency, chronic lung disease or chronic kidney disease. Patient's vital signs are stable and patient is nontoxic in appearance. Good return precautions have been discussed with patient, patient verbalized understanding and is agreeable with discharge plan of care at this time. Patient Education/Counseling Counseling/Education: Patient was provided with discharge information including: As a person under investigation for Covid 19, the [place] department of Health and Human Services, division of public health advises you to adhere to the following guidance until your test results are reported to you. If your test result is positive, you will receive additional information from your provider and your local health department at that time. Remain at home until you are cleared by the health provider or public health authorities. Keep a log of visitors to your home, notify any visitors to your home of your isolation status. If you plan to move to a new address or leave the county, notify the local health department in your County. Call your doctor or seek care if you have an urgent medical need. Before seeking medical care, call ahead to get instructions from the provider before a rriving at the medical office clinic or hospital. Notify them that you are being tested for the virus that causes Covid 19 so that arrangements can be made, as necessary, to prevent transmission to others in the healthcare setting. Next, notify the local health department in your county. If a medical emergency arises and you need to call 911, inform the first responders that you are being tested for the virus that causes Covid 19. Next, notify the local health department in your county. [facility] Discharge - Discharge Clinical Impression: Encounter for screening laboratory testing for COVID-19 virus Condition: Stable Disposition: Home; Selfcare
[2020-01-31 11:54] VITALS: BP 118/55
== END ==
LOC: RDC 11:06
PROVIDERS: ATTEND Nurse Practitioner Family
DX: Z20.828 Contact with and (suspected) exposure to other viral communicable diseases (principal); R50.9 Fever, unspecified; R06.02 Shortness of breath; J02.9 Acute pharyngitis, unspecified; R09.89 Other specified symptoms and signs involving the circulatory and respiratory systems; M79.10 Myalgia, unspecified site; R11.0 Nausea; R51 Headache; R10.819 Abdominal tenderness, unspecified site; R19.7 Diarrhea, unspecified; K58.9 Irritable bowel syndrome, unspecified; F43.10 Post-traumatic stress disorder, unspecified; F41.9 Anxiety disorder, unspecified; Z87.820 Personal history of traumatic brain injury
CPT/HCPCS: 87635; C9803; 99201; 99211

== ENCOUNTER 2020-06-07 23:38 | Emergency (ER) | payer OTHER ==
[2020-06-08] MEDS ORDERED: ONDANSETRON HCL INJ/PF 4 MG/2 ML SDV IV ONE
[2020-06-08] MEDS ORDERED: HYDROMORPHONE HCL INJ/PF 2 MG/ML AMPULE IV ONE
[2020-06-08] MEDS ORDERED: NORMAL SALINE 1000 ML 1,000 ML IV ONE (00:01)
--- NOTE | 2020-06-08 00:11 | ER Document Report ---
ED General - General Chief Complaint: Fall Injury Stated Complaint: FALL OFF LADDER APPROX 20 FT/BODY PAIN/KNOCKED OUT Time Seen by Provider: 06/08/20 00:00 Primary Care Provider: GEOFF RUANO MD [HONORARY] - Follow up as needed TRAVEL OUTSIDE OF THE [place] IN LAST 30 DAYS: No - HPI Context: This is a 39-year-old male who presents to the emergency department with multiple complaints after falling 20 feet off an extension ladder. Patient states that around 0830 hrs. yesterday morning the patient put the extension letter up on the side of his house in order to clean the gutters and start hanging [place] lights. Patient states he does not know exactly why but when he got to the top of the ladder he "blacked out." And the next thing he remembers is being on the ground. Patient states he tried to "walk it off" and tried to take a nap middle of the day yesterday to rest and see if he would feel better but the patient states that his pain just seems to be getting worse. Patient is complaining of 4 out of 5 pain in the midline of his thoracic spine, basically between his scapula, lower thoracic midline pain and midline pain just superior to his gluteal crease. Patient states that he also has a sensation of pain running down his right arm and a sensation of pain running down his right leg. Patient states he is able to walk but is slow in doing so secondary to pain. Patient states that movement exacerbates his symptoms and nothing seems to alleviate his pain at this point. Currently, patient is denying headache, midline cervical pain, chest pain, abdominal pain. Patient denies shortness of breath, fever, history of Covid 19 infection, known exposure to Covid positive persons or known exposure to persons under investigation for COVID-19. 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 Denies: Hx Cerebrovascular Accident, Hx Seizures Renal/ Medical History: Denies: Hx Peritoneal Dialysis GI Medical History: Reports: Hx Irritable Bowel Musculoskeletal Medical History: Denies Hx Arthritis, Reports Hx Musculoskeletal Trauma Psychiatric Medical History: Reports: Hx Anxiety, Hx Depression Traumatic Medical History: Reports: Hx Fractures, Hx Traumatic Brain Injury Past Surgical History: Reports: Hx Orthopedic Surgery - knee, Other - recent open umbilical hernia repair - Immunizations Immunizations up to date: Yes Hx Diphtheria, Pertussis, Tetanus Vaccination: Yes Review of Systems - Review of Systems Notes: Review of systems as below unless otherwise stated in HPI. CONSTITUTIONAL [No] fever, [No] chills. EYES [No] eye pain. ENT [No] URI symptoms, [No] sore throat, [No] ear pain. CARDIOVASCULAR [No] chest pain, [No] palpitations, [No] edema. RESPIRATORY [No] Cough, [No] SOB, [No] wheezing. GASTROINTESTINAL [No] abdominal pain, [No] nausea, [No] Diarrhea, [No] Vomiting, [No] constipation, [No] melena, [No] rectal bleeding. GENITOURINARY [No] dysuria, [No] urinary frequency, [No] hematuria, [No] urinary urgency MUSCULOSKELETAL [Positive] Back pain. Positive pelvic pain SKIN [No] Rash. NEUROLOGIC [No] Headache, [No] recent seizures, [No] paralysis,[No] parathesias, positive LOC ENDOCRINE [No] polyuria. HEMO/LYMPATIC [No] easy brusing PSYCHIATRIC [No] depression. Physical Exam - Vital signs Vitals: Temp Pulse Resp BP Pulse Ox 98.5 F 74 20 152/89 H 98 06/07/20 23:50 06/07/20 23:50 06/07/20 23:50 06/07/20 23:50 06/07/20 23:50 - Notes Notes: CONSTITUTIONAL [Vital signs reviewed, Patient has tears in his eyes and appears to be in a great deal of pain, alert and oriented X 3, HEAD [Atraumatic, Normocephalic.] EYES [Eyes are normal to inspection, No discharge from eyes, Extraocular muscles intact, Sclera are normal, Conjunctiva are normal.] ENT [External ears normal to inspection, TMs are not visible secondary to impacted cerumen and ear canals but there is no evidence of blood or other fluid in the EACs bilaterally nose examination normal, Mouth normal to inspection.] NECK Neck is in a rigid cervical collar, there is point tenderness to palpation in the region of C7/T1 but no step-off, deformity or crepitus is noted, no jugular venous distention, No meningeal signs, ] RESPIRATORY CHEST [Chest is nontender, Breath sounds normal, No respiratory distress.] CARDIOVASCULAR [RRR, No murmurs, Normal S1 S2, No rub, No gallop.] ABDOMEN [Abdomen is nontender, No pulsatile masses, No other masses, Bowel sounds normal, No distension, No peritoneal signs, No hernias.] BACK Back exam is significant for midline tenderness in the lower cervical region in the midline, upper thoracic region and between the scapula, again in the lower thoracic region and just above the superior gluteal crease in the midline. There are no step-offs or appreciable deformities or crepitus noted UPPER EXTREMITY [Inspection normal, No cyanosis, No clubbing, No edema, no deformities are appreciated and gross motion is intact LOWER EXTREMITY [Inspection normal, No cyanosis, No clubbing, No edema, No calf tenderness, no deformities are appreciated and gross motion is intact NEURO [No focal motor deficits, No focal sensory deficits, Speech normal. Patient is complaining of sharp pain radiating down his right buttock into his right lower extremity. Straight leg raise exam was not performed.] SKIN [Skin is warm, Skin is dry, Skin is normal color.] PSYCHIATRIC [Anxious affect. ] Course - Re-evaluation Re-evalutation: 06/08/20 03:27 Results of ED MSE discussed with patient. When asked if all the patient's questions and concerns related to this visit were answered, patient answered in the affirmative. Emergency signs and symptoms, reasons to return to the emergency department discussed with patient. Patient states his pain overall is definitely much improved but he is still having the shooting pain down the right buttock and down the back of the right leg. The patient likely suffered a contusion of the sciatic nerve during his fall. This MD is going to give the patient a dose of Solu-Medrol now and put him on prednisone for 5 days and a muscle relaxant. - Vital Signs Vital signs: Temp Pulse Resp BP Pulse Ox 97.4 F 62 16 117/71 95 06/08/20 03:51 06/08/20 03:51 06/08/20 03:51 06/08/20 03:51 06/08/20 03:51 - Laboratory Result Diagrams: 06/07/20 23:52 06/07/20 23:52 Laboratory results interpreted by me: 06/07/20 06/07/20 23:52 23:52 WBC 11.0 H RDW 15.3 H Plt Count 129 L Glucose 111 H - Diagnostic Test Radiology reviewed: Reports reviewed Discharge - Discharge Clinical Impression: Contusion, multiple sites, Right sided sciatica Accidental fall from ladder Qualifiers: Encounter type: initial encounter Qualified Code(s): W11.XXXA - Fall on and from ladder, initial encounter Condition: Stable Disposition: HOME, SELF-CARE Additional Instructions: Return to the Emergency Department without delay if any worse. HOME CARE INSTRUCTIONS & INFORMATION: Thank you for choosing us for your medical needs. We hope you're satisfied with the care you received. After you leave, you must properly care for your problem and, at the same time, observe its progress. Any condition can change. Some illnesses can change rapidly over hours or days. If your condition worsens, return to the Emergency Department or see your physician promptly. ABOUT YOUR X-RAYS AND EKG'S: If you had an EKG or X-rays taken, they have been read by the Emergency Physician. The X-rays and EKG's will also be read by a Radiologist or Education Program Specialist within 24 hours. If discrepancies are noted, you will be notified by telephone. Please be certain the ED has a correct telephone number & address where you can be reached. Also, realize that some fractures or abnormalities do not show up on initial X-rays. If your symptoms continue, see your physician. ABOUT YOUR LABORATORY TEST: If you had laboratory tests, the results have been reviewed by the Emergency Physician. Some test results (for example cultures) may not be available for several days. You will be contacted if any test result shows you need additional treatment. Please be certain the ED has a correct telephone number and address where you can be reached. ABOUT YOUR MEDICATIONS: You will receive instructions on how to take your medicine on the prescription label you receive. Additional information may be provided by the Pharmacy. If you have questions afterwards, call the ED for clarification or further instructions. Some prescribed medications may cause drowsiness. Do not perform tasks such as driving a car or operating machinery without consulting your Pharmacist. If you feel you need a refill of pain medication, your condition will need re-evaluation. Please do not call for a refill of any medication. ABOUT YOUR SIGNATURE: Signature of this document acknowledges to followin. Understanding that you received emergency treatment and that you may be released before al medical problems are known or treated. Please be certain the ED has a correct phone number & address where you can be reached. 2. Acknowledgement that you will arrange for follow-up care as recommended. 3. Authorization for the Emergency Physician to provide information to your follow-up Physician in order to maximize your care. AT ANY TIME, IF YOUR SYMPTOMS CHANGE SIGNIFICANTLY OR WORSEN OR YOU DEVELOP NEW SYMPTOMS, RETURN TO THE EMERGENCY DEPARTMENT IMMEDIATELY FOR RE-EVALUATION. OUR GOAL IS TO PROVIDE EXCELLENT MEDICAL CARE! WE HOPE THAT WE HAVE MET YOUR EXPECTATIONS DURING YOUR EMERGENCY DEPARTMENT VISIT AND THAT YOU FEEL YOU HAVE RECEIVED EXCELLENT CARE! Contusion Your injury has resulted in a contusion -- a crushing of the deep tissues. No injury to important structures was detected during the physician's exam. Contusions vary in the amount of pain they cause, and in the length of time required for healing. Typically, the area will become bruised, and will remain painful to touch for two or three weeks. However, most patients are back to working and playing within a few days. After the initial period of rest and cold-packs, your symptoms (together with the doctor's recommendations) will determine how rapidly you can get back to full activity. Usually this means "do what feels okay, but don't do things that hurt." If re-examination was recommended, it's important to follow up as instructed. Call the doctor or return any time if pain increases, if swelling becomes severe, if you develop numbness or weakness in an injured extremity, or if any other alarming symptoms occur. Sciatica Your symptoms suggest "sciatica." The pain of sciatica typically radiates down the leg. Numbness in the foot or calf may also occur. Sciatica is caused by irritation of the sciatic nerve or its branches. The irritation can be due to a herniated disk in the spine, swelling and inflammation in the muscles surrounding the sciatic nerve, or direct injury of the nerve itself. Most cases of sciatica will resolve with medical treatment. Bed rest is usually recommended initially. Surgery is only necessary when the condition will not improve with rest and antiinflammatory medication. Muscle relaxers are often given if muscle soreness is present. A CAT scan of the back may be performed if a herniated disk is suspected. Re-examination is necessary if you develop increasing numbness, localized weakness in the foot or ankle, or if the pain does not respond to rest. Prescriptions: Prednisone [Deltasone 20 mg Tablet] 3 tab PO DAILY 5 Days #15 tablet Cyclobenzaprine HCl [Flexeril 10 mg Tablet] 10 mg PO TIDP PRN #30 tab PRN Reason: muscle tightness Referrals: GEOFF RUANO MD [HONORARY] - Follow up as needed
[2020-06-08 00:38] LABS: ABSOLUTE BASOPHILS # (AUTO) 0.1 10^3/uL (0.0-0.2); ABSOLUTE EOSINOPHILS # (AUTO) 0.4 10^3/uL (0.0-0.6); ABSOLUTE LYMPHOCYTES (AUTO) 4.1 10^3/uL (0.5-4.7); ABSOLUTE MONOCYTES (AUTO) 0.7 10^3/uL (0.1-1.4); ABSOLUTE NEUT (AUTO) 5.8 10^3/uL (1.7-8.2); BASOPHILS % (AUTO) 0.6 % (0-2); EOSINOPHILS % (AUTO) 3.3 % (0-6); HEMATOCRIT 41.2 % (37.9-51.0); LYMPHOCYTES % (AUTO) 36.8 % (13-45); MEAN CORPUSCULAR VOLUME 85 fl (80-97); MONOCYTES % (AUTO) 6.3 % (3-13); PLATELET COUNT 129 10^3/uL (150-450); RED BLOOD COUNT 4.83 10^6/uL (4.35-5.55); RED CELL DISTRIBUTION WIDTH 15.3 % (11.5-14.0); TOTAL CELLS COUNTED % (AUTO) 100 %
[2020-06-08 00:49] LABS: ALBUMIN 4.1 g/dL (3.5-5.0); ALKALINE PHOSPHATASE 86 U/L (38-126); ANION GAP 7 (5-19); ASPARTATE AMINO TRANSFERASE 26 U/L (17-59); BILIRUBIN,DIRECT 0.1 mg/dL (0.0-0.4); BILIRUBIN,TOTAL 0.3 mg/dL (0.2-1.3); BLOOD UREA NITROGEN 12 mg/dL (7-20); CALCIUM 9.2 mg/dL (8.4-10.2); CARBON DIOXIDE 25 mmol/L (22-30); CHLORIDE 107 mmol/L (98-107); GLUCOSE 111 mg/dL (75-110); POTASSIUM 3.8 mmol/L (3.6-5.0); TOTAL PROTEIN 7.2 g/dL (6.3-8.2)
--- NOTE | 2020-06-08 01:02 | RADIOLOGY REPORT (SQ) ---
EXAM DESCRIPTION: CT HEAD WITHOUT IV CONTRAST COMPLETED DATE/TME: 06/08/2020 00:55 CLINICAL HISTORY: 20 foot fall, loss of consciousness COMPARISON: None available TECHNIQUE: Axial CT of the head obtained from the skull apex to the skull base without contrast. FINDINGS: No acute intracranial hemorrhage identified. No mass, mass effect, shift of the midline, abnormal extra-axial fluid collection or CT evidence of acute ischemic change identified. The ventricular system is unremarkable. No acute abnormalities of the supratentorial white matter, basal ganglia, cerebellum, or brainstem. Minimal mucosal thickening of the paranasal sinuses. Mastoid air cells are well aerated. No skull fracture identified. Visualized orbits and globes are unremarkable. IMPRESSION: 1. No acute intracranial abnormality identified. This exam was performed according to our departmental dose-optimization program, which includes automated exposure control, adjustment of the mA and/or kV according to patient size and/or use of iterative reconstruction technique.
--- NOTE | 2020-06-08 01:13 | RADIOLOGY REPORT (SQ) ---
EXAM DESCRIPTION: CT ABDOMEN PELVIS WITH IV CONTRAST, CT CHEST WITH IV CONTRAST COMPLETED DATE/TME: 06/08/2020 00:55 CLINICAL HISTORY: 20 foot fall, complaining of low back and pelvic p COMPARISON: 02/03/2019 TECHNIQUE: CT of the chest, abdomen and pelvis performed following IV administration of 100 mL of Omnipaque 350. FINDINGS: Chest: Thyroid:No abnormalities of the visualized thyroid. Great Vessels:Great vessels have normal anatomic configuration. Thoracic Aorta:No abnormalities of the thoracic aorta identified. Pulmonary arteries:The main pulmonary artery is not dilated. Heart:No cardiomegaly, significant pericardial effusion, or coronary artery atherosclerosis Lymph Nodes:No enlarged mediastinal lymph nodes identified. Esophagus:No abnormalities of the esophagus identified Other:No additional findings. Lungs:No airspace opacities identified. Pleura:No pleural effusion or pneumothorax. Trachea/Airways:No abnormalities of the visualized trachea or airways. Abdomen: Liver: The liver has normal size and density. No intrahepatic mass or biliary dilatation. Gallbladder: No calcified gallstones. Spleen, Pancreas, and Adrenal Glands: The spleen, pancreas, and adrenal glands are unremarkable. Kidneys: The kidneys have normal size and contour without evidence of solid mass or hydronephrosis. 4 mm right renal cyst. Vasculature: The aorta and IVC have normal caliber and position. The portal vein is patent. The proximal visceral and renal arteries are patent. Stomach: The stomach and duodenum have normal course. Other: No free intraperitoneal air. No free fluid or lymphadenopathy. Prior ventral hernia repair. Pelvis: Bladder: Urinary bladder is unremarkable. Bowel: No dilated loops of large or small bowel. Appendix: Normal appendix. Pelvis: Prostate is not enlarged. Bones: No destructive bone lesions identified. Minimal endplate spondylosis. IMPRESSION: 1. No acute traumatic, inflammatory or obstructive process identified. This exam was performed according to our departmental dose-optimization program, which includes automated exposure control, adjustment of the mA and/or kV according to patient size and/or use of iterative reconstruction technique.
--- NOTE | 2020-06-08 01:16 | RADIOLOGY REPORT (SQ) ---
EXAM DESCRIPTION: CT CERVICAL SPINE WITHOUT IV CONTRAST COMPLETED DATE/TME: 06/08/2020 00:55 CLINICAL HISTORY: 20 foot fall from ladder, positive neck pain COMPARISON: None available TECHNIQUE: Axial CT of the cervical spine obtained without contrast. Mild motion artifact. FINDINGS: Straightening of the cervical lordosis may be secondary to patient positioning. The atlantoaxial, atlantodental, and occipitoatlantal intervals are preserved. No fracture identified. Vertebral body height preserved. Prevertebral soft tissues are unremarkable. Intervertebral disc height preserved. Mild minimal endplate spondylosis. Visualized skull base is intact. No fracture of the visualized facial bones. Visualized mastoid air cells and paranasal sinuses are well aerated. Visualized thyroid is unremarkable. No cervical lymphadenopathy. No pneumothorax in the visualized lung apices. IMPRESSION: 1. No acute fracture or subluxation of the cervical spine. This exam was performed according to our departmental dose-optimization program, which includes automated exposure control, adjustment of the mA and/or kV according to patient size and/or use of iterative reconstruction technique.
--- NOTE | 2020-06-08 01:34 | RADIOLOGY REPORT (SQ) ---
EXAM DESCRIPTION: HAND RIGHT 3 VIEWS, three views CLINICAL HISTORY: 39 years Male, fall, pain COMPARISON: None. FINDINGS: Soft tissues are diffusely swollen. Alignment of the hand is anatomic. Bone mineralization is normal. No fracture is identified. No erosions or periostitis. IMPRESSION: Soft tissue swelling. No fracture.
[2020-06-08] MEDS ORDERED: KETOROLAC TROMETHAMINE INJ/PF 30 MG/1 ML SDV IV ONE (02:56)
[2020-06-08] MEDS ORDERED: METHYLPREDNISOLONE INJ 125 MG/2 ML SDV IV ONE (02:56)
[2020-06-08 03:53] VITALS: BP 117/71
== END 2020-06-08 03:51 | disposition home or self-care (01) ==
LOC: ER 23:38
DX: T14.8XXA Other injury of unspecified body region, initial encounter (principal); M54.6 Pain in thoracic spine; M79.601 Pain in right arm; M54.41 Lumbago with sciatica, right side; R10.2 Pelvic and perineal pain; M54.2 Cervicalgia; W11.XXXA Fall on and from ladder, initial encounter; Y93.89 Activity, other specified; Y92.009 Unspecified place in unspecified non-institutional (private) residence as the place of occurrence of the external cause; R55 Syncope and collapse; H61.23 Impacted cerumen, bilateral
CPT/HCPCS: 99285; 96361; 96374; 96375; 86900; 86901; 36415; 86850; 85025; 80053; 73130; 70450; 71260; 72125; 74177; J2930; J1885; J1170; J2405; J7030